=== PATIENT | male | born 1950 | race Caucasian/White ===

== ENCOUNTER → 2016-11-11 | Outpatient (CLI) | payer MEDICARE, BC ==
[~2016-11-11] MED LIST: COREG3.125 M1 PO; COREG3.125 MG PO; HYDROCODONE-APA1 T56 PO; LIPITOR PO; LISINOPRIL PO; LISINOPRIL2.5 MG PO; NORVASC2.5 MG PO; SIMVASTATIN80 MG PO; XELODA500 MG PO
--- NOTE | ~2016-11-11 | CT55 ---
[facility] A Service of [facility] & [facility] RADIOLOGY TEXT RESULTS PATIENT: AGUEDA CHRISTIANSON LOCATION: [facility] : 46 UNIT #: [id number] AGE: [address]: Ilia Schumacher MD SEX: M ORDER DR: [id number] [facility] [address] [place], [place] [address] [id number] O MR#: [id number] [facility] #: [id number] NAME: AGUEDA CHRISTIANSON : 1950 SEX: M STUDY DATE/TIME: 11/11/2016 9:18 UNIT: [facility] ROOM: STUDY DESCRIPTION: CT Chest W Con Attending Physician: Ilia Schumacher M.D. Referring Physician: Ilia Schumacher M.D. Ordering Physician: Ilia Schumacher M.D. Primary Care Physician: Steve Mauro M.D. MEDICAL IMAGING REPORT This report is preliminary unless electronic signature is present EXAM CT of the chest with contrast INDICATIONS 66-year-old male with metastatic rectal cancer. Follow up. Observation of a malignant process. TECHNIQUE CT scan of the chest performed following the administration of IV contrast. Coronal and sagittal reformatted images obtained. Comparison with chest CT from 09/23/2016. This CT exam was performed with one or more of the following radiation dose reduction techniques: Automatic exposure control, adjustment of mA and/or kV according to patient size, and iterative reconstruction. FINDINGS Again demonstrated are multiple bilateral spiculated nodules. These are either smaller or stable in size. The 2 largest lesions have both decreased in size compared with the prior study. Lesion in the left hilar region measures 2.1 x 2.6 cm. Previously, it was 2.9 x 3.6 cm. Lesion in the right lower lobe measures 1.6 x 1.5 cm. Previously, it was 2.4 x 2.1 cm. There are additional smaller nodules that are either stable or decreased in size. No new nodules. No evidence of lymphadenopathy or pleural effusion. Limiting imaging of the upper abdomen is unremarkable. The bone windows are unremarkable. IMPRESSION 1. Improvement in the appearance of the chest. There are multiple metastatic lesions which have either decreased in size or are stable. The 2 largest lesions have both decreased in size, as described above. No new lesions. [facility]. [facility] A Service of [facility] RADIOLOGY TEXT RESULTS PATIENT: AGUEDA CHRISTIANSON LOCATION: [facility] : 46 UNIT #: [id number] AGE: [address]: Ilia Schumacher MD SEX: M ORDER DR: 2. Emphysema. Dictated by... Ismael Christianson M.D. THIS IS AN ELECTRONICALLY VERIFIED REPORT Ismael Christianson M.D. at 11/12/2016 11:31 AM JM/les TD: 11/11/2016 23:46 JOB #: [id number] MEDICAL IMAGING REPORT Page 1 of 1 COPY
[2016-11-11 09:11] LABS: POC - CREATININE 0.66 mg/dL (0.64-1.27); POC - GFR >60.0 mL/min (>60)
== END | disposition home or self-care (01) ==
LOC: CCAT 08:42
PROVIDERS: Internal Medicine Medical Oncology
DX: C78.01 Secondary malignant neoplasm of right lung (principal); C20 Malignant neoplasm of rectum
CPT/HCPCS: 71260; 82565; Q9967

== ENCOUNTER → 2017-03-24 | Outpatient (CLI) | payer MEDICARE, BC ==
--- NOTE | ~2017-03-24 | CT55 ---
[facility] A Service of [facility] & [facility] RADIOLOGY TEXT RESULTS PATIENT: AGUEDA CHRISTIANSON LOCATION: [facility] : 48 UNIT #: [id number] AGE: [address]: Ilia Schumacher MD SEX: M ORDER DR: [id number] [facility] [address] [place], [place] [address] [id number] O MR#: [id number] [facility] #: [id number] NAME: AGUEDA CHRISTIANSON : 1950 SEX: M STUDY DATE/TIME: 03/24/2017 9:14 UNIT: [facility] ROOM: STUDY DESCRIPTION: CT Chest W Con Attending Physician: Ilia Schumacher M.D. Referring Physician: Ilia Schumacher M.D. Ordering Physician: Ilia Schumacher M.D. Primary Care Physician: Steve Mauro M.D. MEDICAL IMAGING REPORT This report is preliminary unless electronic signature is present EXAM CT of the chest with contrast. INDICATIONS Followup rectal cancer. Observation of a malignant process. TECHNIQUE CT of the chest was performed following administration of IV contrast. Coronal and sagittal reformatted images were obtained. This CT exam was performed with one or more of the following radiation dose reduction techniques: automatic exposure control, adjustment of mA and/or kV according to patient size, and iterative reconstruction. COMPARISON Comparison is made with 11/11/2016. FINDINGS Emphysema. There is a pulmonary nodule in the left upper lobe measuring about 1 cm. This does not appear significantly changed. Decrease in size of a left hilar spiculated lesion now measuring 2.1 x 1.6 cm. Previously it was 2.6 x 2.1 cm. Stable sub-centimeter nodule in the left lower lobe on image 85. The nodule in the base of the left lower lobe now measures 1.2 x 1.1 cm. Previously this was 1.0 x 0.9 cm. The nodule in the right lower lobe measures 9 x 7 mm. Previously it was 7 x 6 mm. A spiculated nodule in the right lower lobe as seen on the coronal imaging has decreased in size, measuring 1.5 x 1.4 cm. Previously it was 2.0 x 1.9 cm. There is no lymphadenopathy or pleural effusion. Limited imaging of the upper abdomen shows stable pancreatic calcifications. The bone windows demonstrate degenerative changes of the spine and osteopenia. IMPRESSION 1. Mixed response. The 3 largest nodules have all either decreased in size or are stable. A nodule in the left hilar region is decreased [facility]. [facility] A Service of [facility] & [facility] RADIOLOGY TEXT RESULTS PATIENT: AGUEDA CHRISTIANSON LOCATION: [facility] : 48 UNIT #: [id number] AGE: [address]: Ilia Schumacher MD SEX: M ORDER DR: in size. Measurements as above. A nodule within the right lower lobe is also decreased in size, measurements as above. The nodule in the anterior left upper lobe is stable. 2. There are 2 nodules which have actually increased in size. 1 of these is in the base of the left lower lobe, measurements as above, and another is in the base of the right lower lobe, measurements as above. Dictated by... Ismael Christianson M.D. THIS IS AN ELECTRONICALLY VERIFIED REPORT Ismael Christianson M.D. at 03/24/2017 4:36 PM ARS/gz TD: 03/24/2017 13:29 JOB #: [id number] MEDICAL IMAGING REPORT Page 1 of 1 COPY
[2017-03-24 13:26] LABS: POC - GFR >60.0 mL/min (>60)
== END | disposition home or self-care (01) ==
LOC: CCAT 08:38
PROVIDERS: Internal Medicine Medical Oncology
DX: R91.1 Solitary pulmonary nodule (principal); C20 Malignant neoplasm of rectum; R91.8 Other nonspecific abnormal finding of lung field
CPT/HCPCS: 71260; 82565; Q9967

== ENCOUNTER → 2017-04-29 | Outpatient (CLI) | payer MEDICARE, BC ==
[~2017-04-29] VITALS: Ht 172.7 cm; Wt 63.0 kg
--- NOTE | ~2017-04-29 | CT134 ---
[facility] Service of [facility] RADIOLOGY TEXT RESULTS PATIENT: AGUEDA CHRISTIANSON LOCATION: [facility] : 46 UNIT #: [id number] AGE: [address]: Pablo Freeman MD SEX: M ORDER DR: [id number] [facility] [address] [place], [place] [address] [id number] O MR#: [id number] Acc #: [id number] NAME: AGEUDA CHRISTIANSON : 1950 SEX: M STUDY DATE/TIME: 04/29/2017 11:03 UNIT: [facility] ROOM: STUDY DESCRIPTION: CT Guide Attending Physician: Pablo Freeman M.D. Referring Physician: Pablo Freeman M.D. Ordering Physician: Pablo Freeman M.D. Primary Care Physician: Steve Mauro M.D. MEDICAL IMAGING REPORT This report is preliminary unless electronic signature is present EXAM Fiducial marker placement under CT guidance. HISTORY Mr. Christianson has a history of metastatic colon cancer. He has been referred for placement Visi-coils to allow for localization for radiation therapy. PROCEDURE The risks, benefits and alternatives to the procedure were explained to the patient, signed informed consent was obtained. He was placed supine on the CT scanner gantry. Preliminary CT scan was performed through the region of interest. An appropriate site overlying the lesion was selected. The overlying skin was marked. Patient is prepped draped usual sterile fashion. Time-out was performed as per protocol. The skin and kidneys tissues were anesthetized with buffered lidocaine. A Visi-coil needle was advanced towards the posterior aspect of the lesion and was subsequently deployed. I turned my attention to the more anterior aspect of the lesion. Again, preliminary CT scan was performed through the region of interest. An appropriate site was selected. The overlying skin was marked. The patient was prepped and draped in the usual sterile fashion. Time-out was performed as per protocol. Skin and subcutaneous tissues were anesthetized with buffered lidocaine, and a new fiducial marker needle was advanced towards the more anterior aspect of the lesion and was deployed. Final CT scan confirmed appropriate positioning of the markers, manual pressure was applied. Hemostasis was obtained, the patient did receive moderate sedation consisting 4 mg of Versed and 50 mcg of fentanyl. I supervised the IVR nurse who monitored the patient's vital signs for a total 36 minutes post this time. Dictated by... [facility] Service of [facility] RADIOLOGY TEXT RESULTS PATIENT: AGUEDA CHRISTIANSON LOCATION: [facility] #: [id number] : [birth year] UNIT #: [id number] AGE: [address]: Pablo Freeman MD SEX: M ORDER DR: Re Herrera M.D. THIS IS AN ELECTRONICALLY VERIFIED REPORT Re Herrera M.D. at 04/30/2017 2:44 PM AFF/ea TD: 04/30/2017 13:03 JOB #: [id number] MEDICAL IMAGING REPORT Page 1 of 1 COPY
[2017-04-29 09:21] LABS: HEMATOCRIT 38.9 % (38.0-50.0); HEMOGLOBIN 12.9 gm/dL (13.0-16.0); MEAN CELL VOLUME 91.1 FL (83-96); MEAN CORPUSCULAR HEMOGLOBIN 30.2 PG (28-34); MEAN CORPUSCULAR HGB CONC 33.1 g/dL (30-36); MEAN PLATELET VOLUME 7.4 FL (6.5-11.5); RED BLOOD COUNT 4.27 X10e (3.90-5.60); RED CELL DISTRIBUTION WIDTH 15.9 % (11.0-15.5); WHITE BLOOD COUNT 8.1 X10e3 (4.0-10.5)
[2017-04-29 09:43] LABS: INR 0.9; PARTIAL THROMBOPLASTIN TIME 26.7 SECONDS (23.5-31.3); PROTHROMBIN TIME (PATIENT) 10.2 SECONDS (10.0-11.7)
== END | disposition home or self-care (01) ==
LOC: CIVR 08:53
PROVIDERS: Radiology Radiation Oncology
DX: C18.9 Malignant neoplasm of colon, unspecified (principal); I25.2 Old myocardial infarction; J44.9 Chronic obstructive pulmonary disease, unspecified; F17.210 Nicotine dependence, cigarettes, uncomplicated
CPT/HCPCS: 36415; 77012; 85027; 85610; 85730; 99152; 99153; J0690; J2250; J3010